=== PATIENT | male | born 1970 | race Caucasian/White ===

== ENCOUNTER → 2017-08-29 15:43 | Outpatient (CLI) | payer BC ==
[2017-08-31 07:30] LABS: HCG-QUANTITATIVE(TUMOR MARKER) <1 mIU/mL (0-3)
[2017-08-31 12:19] LABS: ALPHA FETOPROTEIN -(TUMOR MRK) 3.8 ng/mL (0.0-8.3)
== END | disposition home or self-care (01) ==
LOC: D.LAB 15:43
PROVIDERS: Urology
DX: N50.89 Other specified disorders of the male genital organs (principal)

== ENCOUNTER → 2019-05-07 08:43 | Outpatient (CLI) | payer MEDICAID | END | disposition home or self-care (01) | LOC: D.MRI 08:43 | PROVIDERS: ATTEND Orthopaedic Surgery | DX: M54.16 Radiculopathy, lumbar region (principal) ==